=== PATIENT | female | born 1990 | race Caucasian/White ===

== ENCOUNTER 2016-11-25 20:10 | Emergency (ER) | payer SELFPAY ==
[~2016-11-25] VITALS: Ht 165.1 cm; Wt 50.8 kg
[2016-11-25 20:32] VITALS: BP 119/62
[2016-11-25] MEDS ORDERED: HYDR-971 PO (21:29)
--- NOTE | 2016-11-25 21:30 | PHYS DOC ---
Past Medical History Past Medical History: No Pertinent History Past Surgical History: No Surgical History Alcohol Use: None Drug Use: None Adult General Chief Complaint Chief Complaint: KNEE INJURY [facility] HPI Patient is a 26 year old female presents emergency department stating that she [place] in the evening when she went down the hill and developed sudden sensation in her knee of pain and discomfort. She states that she went a little further and states that she was unable to finish the tripped on the heel and had to ask for assistance. Patient states that she has been taking it easy since that time. She does state that she has pain on the inner part of her right knee. She states that she has increased pain with trying to drive pushing the [place] on trying to apply the brake. Patient states that she has numbness and tingling that goes to the inside of the knee and slightly down into the leg. She denies any numbness or tingling down into the toes. She has been taken 200-400 mg of ibuprofen every 4 hours with minimal relief. Review of Systems Review of Systems Constitutional: Denies fever or chills [] Eyes: Denies change in visual acuity, redness, or eye pain [] HENT: Denies nasal congestion or sore throat [] Respiratory: Denies cough or shortness of breath [] Cardiovascular: No additional information not addressed in HPI [] Musculoskeletal: Denies back pain. C/o right knee pain and discomfort Integument: Denies rash or skin lesions [] Neurologic: Denies headache, focal weakness or sensory changes [] Current Medications Current Medications Current Medications Medications (Trade) Dose Ordered Sig/[facility] Start Time Stop Time Status Last Admin Dose Admin Acetaminophen/ Hydrocodone Bitart (Lortab 5/325) 1 tab 1X ONCE 11/25/16 22:00 11/25/16 22:01 Allergies Allergies Allergies Coded Allergies Type Severity Reaction Last Updated Verified cefaclor Allergy Severe Anaphylaxis 11/25/16 Yes Penicillins Allergy Intermediate HIVE 11/25/16 Yes Physical Exam Physical Exam Constitutional: Well developed, well nourished, no acute distress, non-toxic appearance. [] HENT: Normocephalic, atraumatic, bilateral external ears normal, oropharynx moist, no oral exudates, nose normal. [] Eyes: PERRLA, EOMI, conjunctiva normal, no discharge. [] Neck: Normal range of motion, no tenderness, supple, no stridor. [] Cardiovascular:Heart rate regular rhythm Lungs & Thorax: no respiratory distress noted Skin: Warm, dry, no erythema, no rash. [] Back: No tenderness Extremities: Right medial knee tenderness, no cyanosis, no clubbing, ROM intact , no edema. Peripheral pulses 2+ cap refill brisk less than 2 seconds. Patient with good sensation to the toes. Patient had increased pain with positive [facility] and positive lachmans, positive anterior drawer Neurologic: Alert and oriented X 3, normal motor function, normal sensory function, no focal deficits noted. [] Psychologic: Affect normal, judgement normal, mood normal. [] Current Patient Data Vital Signs Vital Signs Date Time Temp Pulse Resp B/P Pulse Ox O2 Delivery O2 Flow Rate FiO2 11/25/16 20:32 98.4 71 18 99 Room Air 98.4 Lab Values Laboratory Tests Test 11/25/16 21:22 Urine Test Negative (NEG) EKG EKG [] Radiology/Procedures Radiology/Procedures [] Course & Med Decision Making Course & Med Decision Making Pertinent Labs and Imaging studies reviewed. (See chart for details) X-rays negative for any fractures or dislocations. Patient will be placed in a knee immobilizer with recommendations for Tylenol 800 mg every 8 hours. She'll be provided with hydrocodone for severe pain and discomfort. Recommended following up with orthopedic within the next week. Also recommended ice packs on 20 minutes off 20 minutes several times a day. Signs and symptoms to return back to emergency department as been provided. Patient will be discharged home in stable condition. [] Dragon Disclaimer Dragon Disclaimer This electronic medical record was generated, in whole or in part, using a voice recognition dictation system. Departure Departure Impression: Primary Impression: Right knee pain Disposition: HOME, SELF-CARE Condition: STABLE Referrals: NO PCP (PCP) MARIIA GURROLA MD Patient Instructions: Knee Immobilizer, [id number], Knee Pain, [id number] Additional Instructions: Home to rest Wear the knee immobilizer until you followup with orthopedic Ice packs on 20 minutes and off 20 minutes several times a day Elevation as much as possible Ibuprofen 800 mg every 8 hours with food stop taking if you develop upset stomach [place] for severe pain, this medication will cause drowsiness do not take if you need to be alert and oriented Followup with orthopedic in 5-7 days Return to emergency department as needed for signs and symptoms that become worse. Scripts Hydrocodone/Apap 5-325 ([place] 5-325 Tablet)1 Each [id number] Tab PO PRN Q6HRS PRN PAIN #10 TAB Prov:SCOOTER GRIFFITH NP 11/25/16 SCOOTER GRIFFITH NP Nov 25, 2016 21:30
[2016-11-25 21:45] LABS: NEG OBC UR NEG; POS OBC UR POS
[2016-11-25] MEDS ORDERED: HYDROCODONE/APAP 5/325MG TABLET. PO ONE (22:00)
--- NOTE | 2016-11-26 07:22 | RAD ---
EXAM: Right knee, 3 views. HISTORY: Pain. COMPARISON: None. FINDINGS: Frontal, lateral and oblique views of the right knee are obtained. There is no fracture, dislocation or subluxation. There is no effusion. IMPRESSION: No acute osseous finding.
== END 2016-11-25 22:03 | disposition home or self-care (01) ==
LOC: ER 20:10
DX: M25.561 Pain in right knee (principal)
CPT/HCPCS: 29505; 73562; 81025; 99285-25

== ENCOUNTER 2017-10-30 01:18 | Emergency (ER) | payer BC ==
[~2017-10-30] VITALS: Ht 165.1 cm; Wt 51.7 kg
[~2017-10-30 01:18] MED LIST: HYDR-971 PO
[2017-10-30 01:27] VITALS: BP 110/66
[2017-10-30] MEDS ORDERED: IBUPROFEN 600 MG TABLET. PO ONE (01:45)
[2017-10-30] MEDS ORDERED: diphenhydrAMINE HCL 25 MG CAPSULE PO ONE (01:45)
--- NOTE | 2017-10-30 02:23 | PHYS DOC ---
Past Medical History Past Medical History: No Pertinent History Past Surgical History: No Surgical History Alcohol Use: None Drug Use: None Adult General Chief Complaint Chief Complaint: INSECT BITE HPI HPI Patient is a 27 year old male presents with concern of pain and itching and swelling over spider bite sides of her left forearm and right thigh. Patient states she woke yesterday morning with pain swelling and itching in this area. Swelling and itching has increased along with mild erythema. Patient denies constitutional symptoms. No nausea vomiting myalgias fever or tachycardia or palpitations. No medications or therapy's taken prior to ED arrival. Patient denies allergies to previous insect bites or stings. [] Review of Systems Review of Systems Review symptoms as per history of present illness. All other review symptoms are negative.] All other systems were reviewed and found to be within normal limits, except as documented in this note. Current Medications Current Medications Current Medications Medications (Trade) Dose Ordered Sig/[place] Start Time Stop Time Status Last Admin Dose Admin Diphenhydramine HCl (Benadryl) 25 mg 1X ONCE 10/30/17 01:45 10/30/17 02:03 DC 10/30/17 01:56 25 MG Ibuprofen (Motrin) 600 mg 1X ONCE 10/30/17 01:45 10/30/17 02:03 DC 10/30/17 01:56 600 MG Allergies Allergies Allergies Coded Allergies Type Severity Reaction Last Updated Verified cefaclor Allergy Severe Anaphylaxis 11/25/16 Yes Penicillins Allergy Intermediate HIVE 11/25/16 Yes Physical Exam Physical Exam Constitutional: Well developed, well nourished, no acute distress, non-toxic appearance. [] HENT: Normocephalic, atraumatic, bilateral external ears normal, oropharynx moist, no oral exudates, nose normal. [] Eyes: PERRLA, EOMI, conjunctiva normal, no discharge. [] Neck: Normal range of motion, no tenderness, supple, no stridor. [] Cardiovascular:Heart rate regular rhythm, no murmur [] Lungs & Thorax: Bilateral breath sounds clear to auscultation [] Skin: Left extensor proximal forearm, light area of induration, swelling and erythema consistent with insect bite. Small area streaking along distribution of pain but no jim cellulitis. Right anterior thigh, circular area of induration swelling and erythema with central puncture wound consistent with insect bite. No cellulitis or weeping.[] oted. [] Psychologic: Affect normal, judgement normal, mood normal. [] Current Patient Data Vital Signs Vital Signs Date Time Temp Pulse Resp B/P (MAP) Pulse Ox O2 Delivery O2 Flow Rate FiO2 10/30/17 01:27 98.3 87 20 100 Room Air 98.3 EKG EKG [] Radiology/Procedures Radiology/Procedures [] Course & Med Decision Making Course & Med Decision Making Pertinent Labs and Imaging studies reviewed. (See chart for details) [Exam consistent with inflammatory changes secondary to spider bite. No cellulitis. ibuprofen and Benadryl given. Recommend supportive care with PCP follow-up as needed. Return precautions reviewed. Patient verbalizes understanding agreement discharge instructions.] Dragon Disclaimer Dragon Disclaimer This electronic medical record was generated, in whole or in part, using a voice recognition dictation system. Departure Departure Impression: Primary Impression: Insect bite Disposition: 01 HOME, SELF-CARE Condition: GOOD Patient Instructions: Insect Bite, [id number] Additional Instructions: Take ibuprofen and motion in 3-4 times daily and follow-up with your PCP as needed. NAHID MCKNIGHT DO Oct 30, 2017 02:23
== END 2017-10-30 01:56 | disposition home or self-care (01) ==
LOC: ER 01:18
DX: S50.862A Insect bite (nonvenomous) of left forearm, initial encounter (principal); S70.361A Insect bite (nonvenomous), right thigh, initial encounter; Z88.8 Allergy status to other drugs, medicaments and biological substances; Z88.0 Allergy status to penicillin; W57.XXXA Bitten or stung by nonvenomous insect and other nonvenomous arthropods, initial encounter; Y93.89 Activity, other specified; Y92.89 Other specified places as the place of occurrence of the external cause; Y99.8 Other external cause status
CPT/HCPCS: 99283; Q0163

== ENCOUNTER → 2022-02-05 | Outpatient (CLI) | payer OTHER ==
[~2022-02-05] MED LIST changes: +HYDR-3164 PO; -HYDR-971 PO
--- NOTE | 2022-02-05 10:39 | RAD ---
EXAMINATION: CT HEAD/BRAIN WO CLINICAL HISTORY: CONTUSION OF HEAD, RIGHT SIDE HEAD INJURY 01/11/2022 TECHNIQUE: Serial axial images without IV contrast were obtained from the vertex to the foramen magnu m. CT Dose Reduction Employed: One or more of the following individualized dose reduction techniques wer e utilized for this examination: 1. Automated exposure control 2. Adjustment of the mA and/or kV ac cording to patient size 3. Use of iterative reconstruction technique. COMPARISON: None FINDINGS: Acute Change: No evidence of an acute contusion or other acute parenchymal process. Hemorrhage: No evidence of acute intracranial hemorrhage. Mass Lesion/Mass Effect: No evidence of intracranial mass or extraaxial fluid collection. No signific ant mass effect. Parenchyma: Parenchyma within normal limits for age. Ventricles: Ventricles within normal limits for age. Paranasal Sinuses and Skull Base: Visualized paranasal sinuses clear. Visualized skull base and soft tissues unremarkable. IMPRESSION: No evidence of acute intracranial abnormality. Electronically signed by: Navin Hardy DO (02/05/2022 10:37 AM) [id number]
== END ==
LOC: CT 10:01
PROVIDERS: ATTEND Preventive Medicine Occupational Medicine
DX: S00.93XA Contusion of unspecified part of head, initial encounter (principal); G44.319 Acute post-traumatic headache, not intractable; X58.XXXA Exposure to other specified factors, initial encounter; Y93.89 Activity, other specified; Y92.89 Other specified places as the place of occurrence of the external cause; Y99.8 Other external cause status
CPT/HCPCS: 70450